=== PATIENT | female | born 1990 | race Caucasian/White ===

== ENCOUNTER 2021-03-20 21:52 | Emergency (ER) | payer BC, OTHER ==
[~2021-03-20] VITALS: Ht 167.6 cm; Wt 55.0 kg
[~2021-03-20 21:52] MED LIST: DENIES HOME MEDS.
[2021-03-21 00:10] VITALS: BP 138/72
== END 2021-03-21 00:23 | disposition home or self-care (01) | DRG 605 ==
LOC: ED 21:52
DX: S50.01XA Contusion of right elbow, initial encounter (principal); S80.02XA Contusion of left knee, initial encounter; W01.0XXA Fall on same level from slipping, tripping and stumbling without subsequent striking against object, initial encounter; Y92.89 Other specified places as the place of occurrence of the external cause